=== PATIENT | male | born 1940 | race Caucasian/White ===

== ENCOUNTER 2017-03-20 08:00 | Inpatient (IN) | payer MEDICAID, MEDICARE ==
[2017-03-20] MEDS ORDERED: Sodium Chloride 0.9% 500 ML IV ONE (08:19)
[2017-03-20] MEDS ORDERED: Pantoprazole 40 MG Vial IVPUSH SCH (09:00)
--- NOTE | 2017-03-20 10:23 | EDM.PDOC ---
ED HPI GENERAL MEDICAL PROBLEM - General Chief Complaint: General Stated Complaint: POSSILE STROKE Time Seen by Provider: 03/20/17 08:00 Source of Information: Reports: Patient, Family History Limitations: Reports: Altered Mental Status, Physical Impairment - History of Present Illness INITIAL COMMENTS - FREE TEXT/NARRATIVE: 76 y.o.w.m with H/O IDDM, [facility], came to the ed with his son due an episode of diaphoresis. [facility] staff call, stating pt is physically and mentally declining. Pt is a poor historian. Onset: Unknown/Unsure Onset Date: 03/19/17 Onset Time: 16:00 Duration: Day(s):, Intermittent Location: Reports: Chest, Generalized Severity: Mild Improves with: Reports: None Worsens with: Reports: None Denies Pain Score (Numeric/FACES): 0 - Related Data Allergies Allergy/AdvReac Type Severity Reaction Status Date / Time No Known Allergies Allergy Verified 03/20/17 14:55 Home Meds: Home Meds Ascorbic Acid [Vitamin C] 500 mg PO DAILY 03/20/17 [History] Aspirin 81 mg PO DAILY 03/20/17 [History] Cholecalciferol (Vitamin D3) [Vitamin D3] 1,000 units PO DAILY 03/20/17 [History ] Divalproex Sodium [Depakote ER] 2,000 mg PO BEDTIME 03/20/17 [History] Docusate Sodium [Colace] 100 mg PO BID 03/20/17 [History] Insulin Glargine,Hum.Rec.Anlog [[place] Solostar] 27 units SUBCUT DAILY 03/20/17 [History] Polyethylene Glycol 3350 [Miralax] 17 gram PO BID 03/20/17 [History] Sennosides/Docusate Sodium [Senna Laxative Tablet] 1 tab PO DAILY PRN 03/20/17 [ History] SitaGLIPtin [Januvia] 50 mg PO DAILY 03/20/17 [History] Tamsulosin [Flomax] 0.4 mg PO BEDTIME 03/20/17 [History] Vitamin E 400 units PO DAILY 03/20/17 [History] amLODIPine Besylate [Norvasc] 2.5 mg PO DAILY 03/20/17 [History] risperiDONE [Risperdal] 1 mg PO BEDTIME 03/20/17 [History] Social & Family History - Tobacco Use Smoking Status *Q: Never Smoker Second Hand Smoke Exposure: No - Caffeine Use Caffeine Use: Reports: None - Recreational Drug Use Recreational Drug Use: No ED ROS GENERAL - Review of Systems Review Of Systems: Unable To Obtain ED EXAM, GENERAL - Physical Exam Exam: See Below Exam Limited By: Altered Mental Status General Appearance: Alert, Mild Distress, Obese Eye Exam: Bilateral Eye: Normal Inspection Ears: Normal External Exam Ear Exam: Bilateral Ear: Auricle Normal Nose: Normal Inspection Throat/Mouth: Inflammation (Gingivitis, s/p teeth extractions, poor dentition) Head: Atraumatic, Normocephalic Neck: Normal Inspection, Supple, Non-Tender Respiratory/Chest: No Respiratory Distress, Lungs Clear (poor insp effort) Cardiovascular: Normal Peripheral Pulses, Regular Rate, Rhythm Peripheral Pulses: 1+: Femoral (L), Femoral (R) GI/Abdominal: Normal Bowel Sounds, Soft (Male) Exam: Deferred Rectal (Males) Exam: Deferred Back Exam: Normal Inspection Extremities: Normal Inspection Neurological: Alert, Oriented, Slow to Respond, Abnormal Gait Psychiatric: Normal Affect Skin Exam: Warm, Dry, Intact, Normal Color, No Rash Lymphatic: No Adenopathy EKG INTERPRETATION EKG Date: 03/20/17 Time: 11:40 Rate (Beats/Min): 71 [place]: RAD-Right [place] Deviation P-Wave: Present QRS: Normal ST-T: Normal QT: Normal Comparison: NA - No Prior EKG Course - Vital Signs Text/Narrative:: 76 y.o.w.m with H/O IDDM, currenly at [facility], came to the ed with his son due an episode of diaphoresis. [facility] staff called, stating pt is physically and mentally declining. May need higher level of care. Pt is a poor historian. PE: weak appearing, slow response to questions, poor dentition s/p teeth extractions. can hold upper and lower extremities up for 5 sec. no gaze deviation Labs: Cr. 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 Physical decline, poss ubgrade in care. DNR/DNI Tx: NS, [place] Plan: Admit to M/S Last Recorded V/S: Last Vital Signs Temp 36.7 C 03/20/17 16:00 Pulse 86 03/20/17 16:00 Resp 20 03/20/17 16:00 BP 145/74 H 03/20/17 16:00 Pulse Ox 95 03/20/17 16:00 - Orders/Labs/Meds Orders: Active Orders 24 hr Category Date Time Status Patient Status [ADT] Routine ADT 03/20/17 10:27 Active Oxygen Therapy [RC] PRN Care 03/20/17 10:27 Active VTE/DVT Education [RC] Per Unit Routine Care 03/20/17 10:27 Active Vital Signs [RC] 04,08,12,16,20,00 Care 03/20/17 10:23 Active Acetaminophen/HYDROcodone [[place] 325-5 MG] Med 03/20/17 10:26 Active 1 tab PO Q4H PRN Lactated Ringers [Ringers, Lactated] 1,000 ml Med 03/20/17 10:30 Active IV ASDIRECTED Resuscitation Status Routine Resus Stat 03/20/17 10:26 Ordered EKG 12 Lead [EK] Routine Ther 03/20/17 11:23 Ordered Medication Orders Hydrocodone Bitart/Acetaminophen ([place] 325-5 Mg) 1 tab PO Q4H PRN PRN Reason: Pain (moderate 4-6) Amlodipine Besylate (Norvasc) 2.5 mg PO DAILY [facility] Aspirin (Aspirin) 81 mg PO DAILY [facility] Divalproex Sodium (Depakote Er) 2,000 mg PO BEDTIME [facility] Docusate Sodium (Colace) 100 mg PO BID [facility] Enoxaparin Sodium (Lovenox) 30 mg SUBCUT Q24H [facility] Last Admin: 03/20/17 16:20 Dose: 30 mg Lactated Ringer's (Ringers, Lactated) 1,000 mls @ 125 mls/hr IV ASDIRECTED [facility] Last Admin: 03/20/17 12:16 Dose: 125 mls/hr Levofloxacin/Dextrose 750 mg/ (Premix) 150 mls @ 100 mls/hr IV Q48H [facility] Insulin Aspart (Novolog) 0 unit SUBCUT TIDMEALS [facility] PRN Reason: Protocol Last Admin: 03/20/17 17:38 Dose: Insulin Detemir (Levemir) 20 unit SUBCUT DAILY [facility] Labetalol HCl (Normodyne) 10 mg IVPUSH Q6H PRN; Protocol PRN Reason: Hypertension Pantoprazole Sodium (Protonix Iv) 40 mg IVPUSH Q24H [facility] Last Admin: 03/20/17 16:19 Dose: 40 mg Risperidone (Risperidal) 1 mg PO BEDTIME [facility] Senna/Docusate Sodium (Senna Plus) 1 tab PO DAILY PRN PRN Reason: Constipation Tamsulosin HCl (Flomax) 0.4 mg PO BEDTIME [facility] Labs: Laboratory Tests 03/20/17 03/20/17 03/20/17 Range/Units 08:20 08:20 08:20 WBC 7.6 (4.5-12.0) X10-3/uL RBC 4.21 L (4.30-5.75) x10(6)uL Hgb 12.8 (11.5-15.5) g/dL Hct 38.6 (30.0-51.3) % MCV 91.7 (80-96) fL MCH 30.4 (27.7-33.6) pg MCHC 33.2 (32.2-35.4) g/dL RDW 12.9 (11.5-15.5) % Plt Count 119 L (125-369) X10(3)uL MPV 6.5 L (7.4-10.4) fL Neut % (Auto) 80.6 (46-82) % Lymph % (Auto) 9.8 L (13-37) % [place] % (Auto) 9.1 (4-12) % Eos % (Auto) 0 L (1.0-5.0) % Baso % (Auto) 0 (0-2) % Neut # (Auto) 6.2 (1.6-8.3) # Lymph # (Auto) 0.7 (0.6-5.0) # [place] # (Auto) 0.7 (0.0-1.3) # Eos # (Auto) 0.0 (0.0-0.8) # Baso # (Auto) 0.0 (0.0-0.2) # PT 11.1 (8.7-11.1) INR 1.10 (0.89-1.13) Sodium 139 (135-145) mmol/L Potassium 4.6 (3.5-5.3) mmol/L Chloride 109 (100-110) mmol/L Carbon Dioxide 21 L (23-29) mmol/L BUN 28 H (8-23) mg/dL Creatinine 2.1 H* (0.6-1.3) mg/dL Est Cr Clr Drug Dosing TNP Estimated GFR (MDRD) 31 L (>60) BUN/Creatinine Ratio 13.3 (9-20) Glucose 151 H (80-116) mg/dL Hemoglobin A1c (4.0-6.0) % Lactic Acid (0.5-2.2) mmol/L Calcium 9.4 (8.6-10.2) mg/dL Total Bilirubin 0.7 (0.1-1.3) mg/dL Direct Bilirubin < 0.1 L (0.1-0.2) mg/dL AST 27 (5-27) IU/L ALT 14 (14-26) IU/L Alkaline Phosphatase 78 (56-112) IU/L Creatine Kinase 324 H* (60-160) IU/L Troponin I (0.02-0.06) NG/ML B-Natriuretic Peptide (0-100) pg/mL Total Protein 7.1 (6.0-8.0) g/dL Albumin 3.1 L (3.2-4.6) g/dL 03/20/17 03/20/17 03/20/17 Range/Units 08:20 08:20 08:20 WBC (4.5-12.0) X10-3/uL RBC (4.30-5.75) x10(6)uL Hgb (11.5-15.5) g/dL Hct (30.0-51.3) % MCV (80-96) fL MCH (27.7-33.6) pg MCHC (32.2-35.4) g/dL RDW (11.5-15.5) % Plt Count (125-369) X10(3)uL MPV (7.4-10.4) fL Neut % (Auto) (46-82) % Lymph % (Auto) (13-37) % [place] % (Auto) (4-12) % Eos % (Auto) (1.0-5.0) % Baso % (Auto) (0-2) % Neut # (Auto) (1.6-8.3) # Lymph # (Auto) (0.6-5.0) # [place] # (Auto) (0.0-1.3) # Eos # (Auto) (0.0-0.8) # Baso # (Auto) (0.0-0.2) # PT (8.7-11.1) INR (0.89-1.13) Sodium (135-145) mmol/L Potassium (3.5-5.3) mmol/L Chloride (100-110) mmol/L Carbon Dioxide (23-29) mmol/L BUN (8-23) mg/dL Creatinine (0.6-1.3) mg/dL Est Cr Clr Drug Dosing Estimated GFR (MDRD) (>60) BUN/Creatinine Ratio (9-20) Glucose (80-116) mg/dL Hemoglobin A1c (4.0-6.0) % Lactic Acid 2.8 H (0.5-2.2) mmol/L Calcium (8.6-10.2) mg/dL Total Bilirubin (0.1-1.3) mg/dL Direct Bilirubin (0.1-0.2) mg/dL AST (5-27) IU/L ALT (14-26) IU/L Alkaline Phosphatase (56-112) IU/L Creatine Kinase (60-160) IU/L Troponin I < 0.01 L (0.02-0.06) NG/ML B-Natriuretic Peptide 64 (0-100) pg/mL Total Protein (6.0-8.0) g/dL Albumin (3.2-4.6) g/dL 03/20/17 Range/Units 08:20 WBC (4.5-12.0) X10-3/uL RBC (4.30-5.75) x10(6)uL Hgb (11.5-15.5) g/dL Hct (30.0-51.3) % MCV (80-96) fL MCH (27.7-33.6) pg MCHC (32.2-35.4) g/dL RDW (11.5-15.5) % Plt Count (125-369) X10(3)uL MPV (7.4-10.4) fL Neut % (Auto) (46-82) % Lymph % (Auto) (13-37) % [place] % (Auto) (4-12) % Eos % (Auto) (1.0-5.0) % Baso % (Auto) (0-2) % Neut # (Auto) (1.6-8.3) # Lymph # (Auto) (0.6-5.0) # [place] # (Auto) (0.0-1.3) # Eos # (Auto) (0.0-0.8) # Baso # (Auto) (0.0-0.2) # PT (8.7-11.1) INR (0.89-1.13) Sodium (135-145) mmol/L Potassium (3.5-5.3) mmol/L Chloride (100-110) mmol/L Carbon Dioxide (23-29) mmol/L BUN (8-23) mg/dL Creatinine (0.6-1.3) mg/dL Est Cr Clr Drug Dosing Estimated GFR (MDRD) (>60) BUN/Creatinine Ratio (9-20) Glucose (80-116) mg/dL Hemoglobin A1c 5.6 (4.0-6.0) % Lactic Acid (0.5-2.2) mmol/L Calcium (8.6-10.2) mg/dL Total Bilirubin (0.1-1.3) mg/dL Direct Bilirubin (0.1-0.2) mg/dL AST (5-27) IU/L ALT (14-26) IU/L Alkaline Phosphatase (56-112) IU/L Creatine Kinase (60-160) IU/L Troponin I (0.02-0.06) NG/ML B-Natriuretic Peptide (0-100) pg/mL Total Protein (6.0-8.0) g/dL Albumin (3.2-4.6) g/dL Meds: Medications Generic Name Dose Route Start Last Admin Trade Name Freq PRN Reason Stop Dose Admin Hydrocodone Bitart/Acetaminophen 1 tab 03/20/17 10:26 [place] 325-5 Mg PO Q4H PRN Pain (moderate 4-6) Amlodipine Besylate 2.5 mg 03/21/17 09:00 Norvasc PO DAILY [facility] Aspirin 81 mg 03/21/17 09:00 Aspirin PO DAILY [facility] Divalproex Sodium 2,000 mg 03/20/17 21:00 Depakote Er PO BEDTIME [facility] Docusate Sodium 100 mg 03/20/17 21:00 Colace PO BID [facility] Enoxaparin Sodium 30 mg 03/20/17 16:00 03/20/17 16:20 Lovenox SUBCUT 30 mg Q24H [facility] Administration Lactated Ringer's 1,000 mls @ 125 mls/hr 03/20/17 10:30 03/20/17 12:16 Ringers, Lactated IV 125 mls/hr ASDIRECTED [facility] Administration Levofloxacin/Dextrose 750 mg/ 150 mls @ 100 mls/hr 03/22/17 12:00 Premix IV Q48H [facility] Insulin Aspart 0 unit 03/20/17 18:00 03/20/17 17:38 Novolog SUBCUT Not Given TIDMEALS [facility] Protocol Insulin Detemir 20 unit 03/21/17 09:00 Levemir SUBCUT DAILY [facility] Labetalol HCl 10 mg 03/20/17 14:33 Normodyne IVPUSH Q6H PRN Hypertension Protocol Pantoprazole Sodium 40 mg 03/20/17 16:00 03/20/17 16:19 Protonix Iv IVPUSH 40 mg Q24H [facility] Administration Risperidone 1 mg 03/20/17 21:00 Risperidal PO BEDTIME [facility] Senna/Docusate Sodium 1 tab 03/20/17 14:30 Senna Plus PO DAILY PRN Constipation Tamsulosin HCl 0.4 mg 03/20/17 21:00 Flomax PO BEDTIME [facility] Discontinued Medications Generic Name Dose Route Start Last Admin Trade Name Freq PRN Reason Stop Dose Admin Sodium Chloride 500 mls @ 999 mls/hr 03/20/17 08:19 03/20/17 10:56 Normal Saline IV 03/20/17 08:49 999 mls/hr .BOLUS ONE Administration Levofloxacin/Dextrose 500 mg/ 100 mls @ 100 mls/hr 03/20/17 11:48 03/20/17 14 :11 Premix IV 03/20/17 12:47 100 mls/hr ONETIME ONE Administration Levofloxacin/Dextrose 250 mg/ 50 mls @ 50 mls/hr 03/20/17 15:14 03/20/17 15: 29 Premix IV 03/20/17 16:13 50 mls/hr ONETIME ONE Administration Insulin Detemir 20 unit 03/21/17 21:00 Levemir SUBCUT DAILY [facility] Ondansetron HCl 4 mg 03/20/17 10:26 Zofran IV Q4H PRN Nausea/Vomiting Pantoprazole Sodium 40 mg 03/20/17 09:00 03/20/17 16:37 Protonix Iv IVPUSH Not Given Q24H [facility] Departure - Departure Time of Disposition: 10:21 Disposition: Admitted As Inpatient 67 Condition: Fair Clinical Impression: Frequent falls, Mental health assessment declined, DNR (do not resuscitate) - Discharge Information - My Orders Last 24 Hours: My Active Orders 03/20/17 10:23 Vital Signs [RC] 04,08,12,16,20,00 03/20/17 10:26 Acetaminophen/HYDROcodone [[place] 325-5 MG] 1 tab PO Q4H PRN Resuscitation Status Routine 03/20/17 10:27 Patient Status [ADT] Routine Oxygen Therapy [RC] PRN VTE/DVT Education [RC] Per Unit Routine 03/20/17 10:30 Lactated Ringers [Ringers, Lactated] 1,000 ml IV ASDIRECTED 03/20/17 11:23 EKG 12 Lead [EK] Routine - Assessment/Plan Last 24 Hours: My Active Orders 03/20/17 10:23 Vital Signs [RC] 04,08,12,16,20,00 03/20/17 10:26 Acetaminophen/HYDROcodone [[place] 325-5 MG] 1 tab PO Q4H PRN Resuscitation Status Routine 03/20/17 10:27 Patient Status [ADT] Routine Oxygen Therapy [RC] PRN VTE/DVT Education [RC] Per Unit Routine 03/20/17 10:30 Lactated Ringers [Ringers, Lactated] 1,000 ml IV ASDIRECTED 03/20/17 11:23 EKG 12 Lead [EK] Routine
[2017-03-20] MEDS ORDERED: Ondansetron 4 MG/2 ML SDV IV PRN (10:26)
--- NOTE | 2017-03-20 11:04 | CT ---
INDICATION: Falls frequently. CT HEAD WITHOUT CONTRAST: Serial contiguous 2.5 and 5-mm sections were obtained through the brain without contrast and revealed thickening of the linings of the maxillary antra, right greater than left, and the possibility of a nasal polyp in the right nasal cavity posteriorly at the medial wall of the right maxillary antrum. Direct visualization is recommended. Paranasal sinuses were otherwise unremarkable. Mastoid air cells appear to be well aerated. No definite cranial abnormality is identified. No shift of midline structures was noted. The ventricles are slightly prominent , compatible with age and a mild degree of central atrophy. There appears to be some cerebellar atrophy and frontal cortical atrophy. A tiny low-density area in the left basal ganglia is compatible with lacunar infarct, most likely old. There appear to be some minimal low-density changes in the white matter, suggesting microvascular disease or other similar leukoencephalopathy. Calcifications are noted in the internal carotid and vertebral arteries. No bleeding site or hematoma was identified. No acute intracranial abnormality was seen. IMPRESSION: 1. No acute intracranial abnormality. 2. Cerebrovascular disease changes with calcifications in the arteries. 3. Suggestion of minimal microvascular disease type changes in the white matter , although other cause of leukoencephalopathy cannot be excluded. 4. Cerebellar and frontal cortical atrophy predominantly with some minimal central atrophy. 5. Small lacunar infarct, probably old, left basal ganglia. 6. Possible nasal polyp right posterior nasal cavity. Direct visualization recommended. 7. Thickening of the linings of maxillary antra. Total Exam DLP = 949.36 mGy-cm. MTDD
--- NOTE | 2017-03-20 11:12 | CR ---
INDICATION: Sweaty, diaphoretic. CHEST: PA and lateral views of the chest were obtained. No comparison study is available. The aorta is tortuous with calcification in the arch. The heart is normal in size and shape. Moderate degenerative changes are noted in the lower middle thoracic spine. Expansion and sclerosis is noted at the distal - anterior aspect of the right 3rd rib. Etiology is indeterminate. Findings could be on the basis of a process such as Paget's disease. Nuclear medicine study may be helpful for further evaluation, depending upon clinical correlation. Somewhat heavy markings posteriorly are noted, likely due to relatively poor inspiration, making it difficult to entirely exclude minimal patchy pneumonia, especially in the medial posterior lobes. An active infiltrate or effusion was not identified. IMPRESSION: 1. No acute process. 2. ASD aorta. 3. 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 Other etiology is difficult to entirely exclude, however. Follow-up may be warranted. Numerous differential possibilities are present. These include metastatic disease, myelofibrosis, renal osteodystrophy, etc. 4. Somewhat heavy markings posteriorly are noted, likely due to relatively poor inspiration, making it difficult to entirely exclude minimal patchy pneumonia, especially in the medial posterior lobes. MTDD
[2017-03-20] MEDS ORDERED: Levofloxacin/Dextrose 5%-Water 500 MG in Premix Bag 1 BAG IV ONE (11:48)
[2017-03-20] MEDS: Lactated Ringers 1,000 ML IV SCH ×2 (12:16→22:29)
[2017-03-20] MEDS ORDERED: Labetalol 100 MG/20 ML MDV IVPUSH PRN (14:33)
--- NOTE | 2017-03-20 15:08 | PCM.HP ---
H&P History of Present Illness - General Date of Service: 03/20/17 Source of Information: Patient, Family History Limitations: Reports: Altered Mental Status - History of Present Illness Initial Comments - Free Text/Narative: pleasant 76 y male brought in as he has been having increased weakness and increased frequency of falls at his assisted living facility and they felt he was not appropriate for continued cares there at this time. hx of falls in the past. chronic hx of dementia. Denies Pain Score (Numeric/FACES): 0 Right Knee Pain Score (Numeric/FACES): 6 Mouth Pain Score (Numeric/FACES): 6 asleep Pain Score (Numeric/FACES): 0 - Related Data Allergies/Adverse Reactions: Allergies Allergy/AdvReac Type Severity Reaction Status Date / Time No Known Allergies Allergy Verified 03/25/17 14:02 Home Medications: Home Meds Ascorbic Acid [Vitamin C] 500 mg PO DAILY 03/20/17 [History] Aspirin 81 mg PO DAILY 03/20/17 [History] Cholecalciferol (Vitamin D3) [Vitamin D3] 1,000 units PO DAILY 03/20/17 [History ] Divalproex Sodium [Depakote ER] 2,000 mg PO BEDTIME 03/20/17 [History] Docusate Sodium [Colace] 100 mg PO BID 03/20/17 [History] Insulin Glargine,Hum.Rec.Anlog [Toujeo Solostar] 27 units SUBCUT DAILY 03/20/17 [History] Polyethylene Glycol 3350 [Miralax] 17 gram PO BID 03/20/17 [History] Sennosides/Docusate Sodium [Senna Laxative Tablet] 1 tab PO DAILY PRN 03/20/17 [ History] SitaGLIPtin [Januvia] 50 mg PO DAILY 03/20/17 [History] Tamsulosin [Flomax] 0.4 mg PO BEDTIME 03/20/17 [History] Vitamin E 400 units PO DAILY 03/20/17 [History] amLODIPine Besylate [Norvasc] 2.5 mg PO DAILY 03/20/17 [History] risperiDONE [Risperdal] 1 mg PO BEDTIME 03/20/17 [History] Past Medical History HEENT History: Reports: Cataract Genitourinary History: Reports: Other (See Below) Other Genitourinary History: Patient stated that he had kidney issues r/t 14 yrs. of [place] use. Neurological History: Reports: CVA Psychiatric History: Reports: Bipolar Endocrine/Metabolic History: Reports: Diabetes, Type II - Infectious Disease History Infectious Disease History: Reports: Chicken Pox, Measles - Past Surgical History HEENT Surgical History: Reports: Eye Surgery, Tonsillectomy GI Surgical History: Reports: Appendectomy, Colonoscopy Male Surgical History: Reports: None Endocrine Surgical History: Reports: None Neurological Surgical History: Reports: None Social & Family History - Family History Family Medical History: Noncontributory - Tobacco Use Smoking Status *Q: Never Smoker Second Hand Smoke Exposure: No - Caffeine Use Caffeine Use: Reports: None - Recreational Drug Use Recreational Drug Use: No H&P Review of Systems - Review of Systems: Review Of Systems: ROS reveals no pertinent complaints other than HPI. Exam - Exam Exam: See Below - Vital Signs Vital Signs: Last Vital Signs Temp 98.2 F 03/20/17 11:31 Pulse 85 03/20/17 11:31 Resp 18 03/20/17 11:31 BP 161/71 H 03/20/17 11:31 Pulse Ox 97 03/20/17 11:31 Weight: 133.838 kg - Exam Physical Exam Comments:: General Appearance: Alert, no Distress, Obese Eye Exam: PERRL Nose: Normal Inspection Throat/Mouth: Inflammation (Gingivitis, s/p teeth extractions, poor dentition) Head: Atraumatic, Normocephalic Neck: Normal Inspection, Supple, Non-Tender Respiratory/Chest: No Respiratory Distress, Lungs Clear (poor insp effort) Cardiovascular: Normal Peripheral Pulses, Regular Rate, Rhythm GI/Abdominal: Normal Bowel Sounds, Soft Back Exam: Normal Inspection Extremities: Normal Inspection Neurological: Alert, Oriented, Slow to Respond, equal strength and ROM. Psychiatric: Normal Affect Skin Exam: Warm, Dry, Intact, Normal Color, No Rash Lymphatic: No Adenopathy - Patient Data Lab Results Last 24 hrs: Laboratory Results - last 24 hr 03/20/17 Range/Units 13:50 Urine Color Yellow (YELLOW) Urine Appearance Clear (CLEAR) Urine pH 5.0 (5.0-6.5) Ur Specific [place] 1.010 (1.010-1.025) Urine Protein Negative (NEGATIVE) mg/dL Urine Glucose (UA) Normal (NEGATIVE) mg/dL Urine Ketones 15 H (NEGATIVE) mg/dL Urine Occult Blood Negative (NEGATIVE) Urine Nitrite Negative (NEGATIVE) Urine Bilirubin Negative (NEGATIVE) Urine Urobilinogen Normal (NEGATIVE) mg/dL Ur Leukocyte Esterase Negative (NEGATIVE) Urine RBC 0-5 (0) Urine WBC 0-5 (0) Ur Squamous Epith Cells Occasional (NS,R,O) Urine Bacteria Rare H (NS) Result Diagrams: 03/22/17 09:40 03/22/17 09:40 Imaging Impressions Last 24 hrs: as noted general CVD without mass or hemorrage in brain. EKG INTERPRETATION Rhythm: NSR P-Wave: Present QRS: Normal ST-T: Normal QT: Normal Comparison: No Change *Q Meaningful Use (ADM) - VTE *Q VTE Criteria *Q: VTE Mechanical Contraindications *Q: At Risk for Falls - Stroke *Q Stroke Criteria *Q: - AMI *Q AMI Criteria *Q: - Problem List (1) Suspected cerebrovascular accident (CVA) SNOMED Code(s): 53513327 ICD Code: I63.9 - CEREBRAL INFARCTION, UNSPECIFIED Status: Acute Priority : High (2) Frequent falls SNOMED Code(s): 052466427 ICD Code: R29.6 - REPEATED FALLS Status: Acute (3) Mental health assessment declined SNOMED Code(s): 072577151 ICD Code: [id number] - Status: Acute (4) Acute renal insufficiency SNOMED Code(s): 914658038 ICD Code: N28.9 - DISORDER OF KIDNEY AND URETER, UNSPECIFIED Status: Acute (5) Gingivitis, acute SNOMED Code(s): 57276461 ICD Code: K05.00 - ACUTE GINGIVITIS, PLAQUE INDUCED Status: Acute (6) Other dental procedure status SNOMED Code(s): 395369129 ICD Code: Z98.818 - OTHER DENTAL PROCEDURE STATUS Status: Acute (7) Complaint of debility and malaise SNOMED Code(s): 374497087 ICD Code: R53.81 - OTHER MALAISE Status: Acute (8) Diabetes mellitus, insulin dependent (IDDM), controlled SNOMED Code(s): 01467490 ICD Code: E11.9 - TYPE 2 DIABETES MELLITUS WITHOUT COMPLICATIONS; Z79.4 - CONTINUOUS CRUSHER OPERATOR (CURRENT) USE OF INSULIN Status: Acute (9) Palliative care status SNOMED Code(s): 740217668 ICD Code: Z51.5 - ENCOUNTER FOR PALLIATIVE CARE Status: Acute (10) CVD (cerebrovascular disease) SNOMED Code(s): 28406145 ICD Code: I67.9 - CEREBROVASCULAR DISEASE, UNSPECIFIED Status: Acute (11) Cerebral atrophy SNOMED Code(s): 508694606 ICD Code: G31.9 - DEGENERATIVE DISEASE OF NERVOUS SYSTEM, UNSPECIFIED Status: Acute (12) DNR (do not resuscitate) Status: Acute (13) DNI (do not intubate) SNOMED Code(s): 092485109 ICD Code: Z78.9 - OTHER SPECIFIED HEALTH STATUS Status: Acute (14) HTN (hypertension) SNOMED Code(s): 53339723 ICD Code: I10 - ESSENTIAL (PRIMARY) HYPERTENSION Status: Acute (15) Hx of seizure disorder SNOMED Code(s): 699386860 ICD Code: Z86.69 - PERSONAL HISTORY OF DIS OF THE NERVOUS SYS AND SENSE ORGANS Status: Acute (16) History of CVA (cerebrovascular accident) SNOMED Code(s): 315905146 ICD Code: Z86.73 - PRSNL HX OF TIA (TIA), AND CEREB INFRC W/O RESID DEFICITS Status: Chronic (17) Lives in assisted living facility SNOMED Code(s): 704380108 ICD Code: Z59.3 - PROBLEMS RELATED TO LIVING IN RESIDENTIAL INSTITUTION Status: Chronic (18) Parkinsons SNOMED Code(s): 05628674 ICD Code: G20 - PARKINSON'S DISEASE Status: Acute (19) Physical deconditioning SNOMED Code(s): 51556180490154 ICD Code: R53.81 - OTHER MALAISE Status: Acute Problem List Initiated/Reviewed/Updated: Yes Orders Last 24hrs: Active Orders 24 hr Category Date Time Status Assess Neurological Status [RC] Q4H Care 03/20/17 14:46 Ordered Blood Glucose Check, Bedside [RC] QIDACANDBED Care 03/20/17 14:33 Ordered Communication Order [RC] ASDIRECTED Care 03/20/17 14:34 Ordered Head of Bed Elevation [RC] ASDIRECTED Care 03/20/17 14:34 Ordered Height and Weight [RC] DAILY Care 03/20/17 14:33 Ordered Intake and Output [RC] Q4H Care 03/20/17 14:35 Ordered NIH Stroke Scale [RC] ASDIRECTED Care 03/20/17 14:47 Ordered Notify Provider Status Change [RC] ASDIRECTED Care 03/20/17 14:47 Ordered Notify Provider Vital Signs [RC] ASDIRECTED Care 03/20/17 14:36 Ordered Notify Provider [RC] PRN Care 03/20/17 14:54 Ordered Nursing Bedside Swallow Screen [RC] ASDIRECTED Care 03/20/17 14:47 Ordered Up With Assistance [RC] ASDIRECTED Care 03/20/17 14:33 Ordered Up to Chair [RC] ASDIRECTED Care 03/20/17 14:33 Ordered Consult to Watermelon Harvesting Supervisor [CONS] Routine Cons 03/20/17 14:33 Ordered OT Evaluation and Treatment [CONS] Routine Cons 03/20/17 14:33 Ordered PT Evaluation and Treatment [CONS] Routine Cons 03/20/17 14:33 Ordered Nothing per Oral Now Diet [DIET] Diet 03/20/17 Breakfast Ordered CBC WITH AUTO DIFF [HEME] AM Lab 03/21/17 05:11 Ordered COMPREHENSIVE METABOLIC PN,CMP [CHEM] AM Lab 03/21/17 05:11 Ordered CREATINE KINASE,CK [CHEM] AM Lab 03/21/17 05:11 Ordered CULTURE BLOOD [BC] Urgent Lab 03/20/17 12:10 Received CULTURE BLOOD [BC] Urgent Lab 03/20/17 12:15 Received TROPONIN I [CHEM] Routine Lab 03/20/17 14:33 Ordered Aspirin Med 03/21/17 09:00 Ordered 81 mg PO DAILY Divalproex Sodium [Depakote ER] Med 03/20/17 21:00 Ordered 2,000 mg PO BEDTIME Docusate Sodium [Colace] Med 03/20/17 21:00 Ordered 100 mg PO BID Docusate Sodium/Sennosides [Senna Plus] Med 03/20/17 14:30 Ordered 1 tab PO DAILY PRN Enoxaparin [Lovenox] Med 03/20/17 14:45 Ordered 30 mg SUBCUT DAILY Insulin Aspart [NovoLOG] Med 03/20/17 18:00 Ordered See Protocol SUBCUT TIDMEALS Insulin Detemir [Levemir] Med 03/21/17 21:00 Ordered 20 unit SUBCUT DAILY Labetalol [Normodyne] Med 03/20/17 14:33 Ordered 10 mg IVPUSH Q6H PRN Pantoprazole [ProTONIX IV] Med 03/20/17 09:00 Ordered 40 mg IVPUSH Q24H Tamsulosin [Flomax] Med 03/20/17 21:00 Ordered 0.4 mg PO BEDTIME amLODIPine [Norvasc] Med 03/21/17 09:00 Ordered 2.5 mg PO DAILY risperiDONE [RisperiDAL] Med 03/20/17 21:00 Ordered 1 mg PO BEDTIME Blood Culture x2 Reflex Set [OM.PC] Urgent Oth 03/20/17 11:47 Ordered Seizure Precautions [OM.PC] Per Unit Routine Oth 03/20/17 14:47 Ordered VTE Mechanical Contraindications [AST] Per Unit Routine Oth 03/20/17 14:33 Ordered Medication Orders Hydrocodone Bitart/Acetaminophen ([place] 325-5 Mg) 1 tab PO Q4H PRN PRN Reason: Pain (moderate 4-6) Lactated Ringer's (Ringers, Lactated) 1,000 mls @ 125 mls/hr IV ASDIRECTED [facility] Last Admin: 03/20/17 12:16 Dose: 125 mls/hr Assessment/Plan Comment:: stop antibiotics. bc pending. hydrate. bedside swallow normal per me. will let him eat. dvt/gi proph. pt/ot. geriatric social work professor for d/c planning. stoke and seizure percautions. control bp and fluid status. at risk for falls. see above orders. will get a ck level. ekg looks good. monitor on tele for possible contributory rhythm changes. discussed with son at bedside and plan of care as related to above, including indication, projected course and code status reviewed. he is DNR/DNI. they are comfortable with plan. anticipate stay acute 1 -2 days then likely over to swing bed for continued PT/OT.
[2017-03-20] MEDS ORDERED: Levofloxacin/Dextrose 5%-Water 250 MG in Premix Bag 1 BAG IV ONE (15:14)
[2017-03-20] MEDS: Pantoprazole 40 MG Vial IVPUSH SCH (16:19)
[2017-03-20] MEDS: Enoxaparin 30 MG/0.3 ML Syringe SUBCUT SCH (16:20)
[2017-03-20] MEDS: Insulin Aspart 100 Units/ML 3 ML Pen SUBCUT SCH (17:38)
[2017-03-20] MEDS: Docusate Sodium 100 MG Cap PO SCH (20:46)
[2017-03-20] MEDS: Divalproex Sodium 500 MG Tab.ER PO SCH (20:47)
[2017-03-20] MEDS: Tamsulosin 0.4 MG Cap.ER PO SCH (20:48)
[2017-03-20] MEDS: risperiDONE 1 MG Tab PO SCH (20:48)
[2017-03-21] MEDS: Lactated Ringers 1,000 ML IV SCH ×3 (06:13→21:43)
[2017-03-21] MEDS: Insulin Aspart 100 Units/ML 3 ML Pen SUBCUT SCH ×3 (08:03→17:50)
[2017-03-21] MEDS: Docusate Sodium 100 MG Cap PO SCH ×2 (08:07→20:20)
[2017-03-21] MEDS: Aspirin 81 MG Tab.Chew PO SCH (08:07)
[2017-03-21] MEDS: amLODIPine 2.5 MG Tab PO SCH (08:07)
[2017-03-21] MEDS: Insulin Detemir 100 Units/ML 3 ML Pen SUBCUT SCH (08:07)
[2017-03-21] MEDS ORDERED: D5 1/2 NS w/ 10 mEq/L KCl 1,000 ML IV SCH (16:15)
[2017-03-21] MEDS: Pantoprazole 40 MG Vial IVPUSH SCH (17:06)
[2017-03-21] MEDS: Enoxaparin 30 MG/0.3 ML Syringe SUBCUT SCH (17:06)
[2017-03-21] MEDS: Divalproex Sodium 500 MG Tab.ER PO SCH (20:19)
[2017-03-21] MEDS: Tamsulosin 0.4 MG Cap.ER PO SCH (20:20)
[2017-03-21] MEDS: risperiDONE 1 MG Tab PO SCH (20:20)
[2017-03-21] MEDS ORDERED: Insulin Detemir 100 Units/ML 3 ML Pen SUBCUT SCH (21:00)
[2017-03-22] MEDS: Lactated Ringers 1,000 ML IV SCH (04:30)
[2017-03-22] MEDS: Insulin Aspart 100 Units/ML 3 ML Pen SUBCUT SCH ×3 (08:16→17:07)
[2017-03-22] MEDS: Docusate Sodium 100 MG Cap PO SCH ×2 (08:19→21:38)
[2017-03-22] MEDS: Aspirin 81 MG Tab.Chew PO SCH (08:19)
[2017-03-22] MEDS: Insulin Detemir 100 Units/ML 3 ML Pen SUBCUT SCH (08:20)
[2017-03-22] MEDS: amLODIPine 2.5 MG Tab PO SCH (08:20)
--- NOTE | 2017-03-22 10:02 | PN ---
DATE SEEN: 03/22/2017 REASON FOR VISIT: Weakness. HISTORY OF PRESENT ILLNESS: This is a 76-year-old male who was admitted 2 days ago for possible stroke. He was noted to have cerebral atrophy. He is weak and has had multiple falls. This morning, he slept well. He has had some behavioral changes at home in the last 2 weeks and it is believed that he is no longer able to stay alone. REVIEW OF SYSTEMS: No chest pain and no shortness of breath today. No fever. Denies any cough. ALLERGIES: None. PHYSICAL EXAMINATION: VITAL SIGNS: His blood pressure is normal. His temp is 98.1, oxygenation 95%. EARS, NOSE, AND THROAT: Negative. CHEST: Clear. MENTAL STATUS: Alert. Answers question appropriately. NEURO: Gait is shuffling gait and has tremors. LABORATORY DATA: Normal white cell count yesterday. Creatinine was 1.9. Creatine kinase was 911. Chest x-ray was really unremarkable. They could not rule out pneumonia, but I doubt. FINAL IMPRESSION: 1. Generalized weakness. 2. Renal failure from dehydration. 3. Parkinsonism. 4. Mild anemia. 5. Palliative care status. 6. History of cerebrovascular disease. 7. Type 2 diabetes. PLAN: My plan is to continue physical and occupation therapy, reduce fluids, repeat electrolytes, and consult medical illustrator for placement in the next coming days or swing bed status, whichever is deemed possible. /[id number] [id number] ALEX/FELIPA
[2017-03-22] MEDS ORDERED: Levofloxacin/Dextrose 5%-Water 750 MG in Premix Bag 1 BAG IV SCH (12:00)
[2017-03-22] MEDS: Pantoprazole 40 MG Vial IVPUSH SCH (16:16)
[2017-03-22] MEDS: Enoxaparin 30 MG/0.3 ML Syringe SUBCUT SCH (16:16)
[2017-03-22] MEDS: Divalproex Sodium 500 MG Tab.ER PO SCH (21:39)
[2017-03-22] MEDS: Tamsulosin 0.4 MG Cap.ER PO SCH (21:41)
[2017-03-22] MEDS: risperiDONE 1 MG Tab PO SCH (21:41)
[2017-03-23] MEDS: Insulin Aspart 100 Units/ML 3 ML Pen SUBCUT SCH ×3 (08:01→17:25)
[2017-03-23] MEDS: Aspirin 81 MG Tab.Chew PO SCH (08:05)
[2017-03-23] MEDS: Docusate Sodium 100 MG Cap PO SCH ×2 (08:05→20:51)
[2017-03-23] MEDS: amLODIPine 2.5 MG Tab PO SCH (08:06)
[2017-03-23] MEDS: Insulin Detemir 100 Units/ML 3 ML Pen SUBCUT SCH (08:06)
--- NOTE | 2017-03-23 09:15 | PN ---
DATE SEEN: 03/23/2017 CHIEF COMPLAINT: Weakness. HISTORY OF PRESENT ILLNESS: This is a 76-year-old male, admitted recently for weakness, physical deconditioning, and frequent falls. He has a history of parkinsonism, bipolar disorder, and type 2 diabetes. He is doing well, eating, and has been attending physical therapy successfully, waiting for placement. REVIEW OF SYSTEMS: No chest pain. No fever or chills. No cough. No tooth pain today. PAST MEDICAL HISTORY: Please see the problem list. PHYSICAL EXAMINATION: GENERAL: He is well nourished. He is not in any cardiopulmonary distress. VITAL SIGNS: He has a blood pressure of 129/69, pulse of 82, and temperature 98.1. CHEST: Clear. ENT: Negative. Oropharynx revealed edentulous area on the right upper jaw, but no tenderness or swelling. NEUROLOGIC: No focal findings. Tremors. MUSCULOSKELETAL: No edema. LABORATORY DATA: This morning, no new labs, except a glucose of 118. FINAL IMPRESSION: 1. Frequent falls. 2. Parkinsonism. 3. Bipolar disorder. 4. History of cerebrovascular accident. 5. Type 2 diabetes. 6. Acute renal insufficiency, stable. PLAN: Discontinue IV fluids and neuro checks. Continue PT and tight glucose control. Awaiting placement next week. /[id number] ALEX/FELIPA
[2017-03-23] MEDS: Enoxaparin 30 MG/0.3 ML Syringe SUBCUT SCH (16:15)
[2017-03-23] MEDS: Pantoprazole 40 MG Tab.CR PO SCH (16:50)
[2017-03-23] MEDS: Pantoprazole 40 MG Vial IVPUSH SCH (17:27)
[2017-03-23] MEDS: Tamsulosin 0.4 MG Cap.ER PO SCH (20:51)
[2017-03-23] MEDS: Divalproex Sodium 500 MG Tab.ER PO SCH (20:51)
[2017-03-23] MEDS: risperiDONE 1 MG Tab PO SCH (20:51)
[2017-03-24] MEDS: Acetaminophen/HYDROcodone 325-5 MG Tab PO PRN ×2 (04:50→10:24)
[2017-03-24] MEDS: Pantoprazole 40 MG Tab.CR PO SCH (06:02)
--- NOTE | 2017-03-24 09:32 | PN ---
DATE SEEN: 03/24/2017 REASON FOR VISIT: Weakness. HISTORY OF PRESENT ILLNESS: This is a 76-year-old male, who has Parkinsonism features and has had some weakness. He feels better today. Complains of some pain in the right knee that is acute. He would like cream. REVIEW OF SYSTEMS: All other systems were negative. ALLERGIES AND MEDICATIONS: Updated. PHYSICAL EXAMINATION: VITAL SIGNS: Blood pressure 160/82, pulse is 73, temperature 98.3. ENT: Negative. CHEST: Clear. EXTREMITIES: Normal with exception of mild tenderness to the right knee. Gait normal. IMPRESSION: 1. Generalized weakness and deconditioning. 2. Frequent falls. 3. Bipolar disorder. 4. Parkinson disease. 5. History of cerebrovascular accident. 6. Type 2 diabetes. 7. Stable acute renal insufficiency. 8. Right knee pain. PLAN: Voltaren gel to the right knee 4 g q.i.d. Continue current medications. PT and OT to continue working with him as we will wait placement. /[id number] [phone] ALEX/FELIPA
[2017-03-24] MEDS: Insulin Aspart 100 Units/ML 3 ML Pen SUBCUT SCH ×3 (10:22→18:24)
[2017-03-24] MEDS: Aspirin 81 MG Tab.Chew PO SCH (10:23)
[2017-03-24] MEDS: Docusate Sodium 100 MG Cap PO SCH ×2 (10:24→20:33)
[2017-03-24] MEDS: amLODIPine 2.5 MG Tab PO SCH (10:24)
[2017-03-24] MEDS: Insulin Detemir 100 Units/ML 3 ML Pen SUBCUT SCH (10:25)
[2017-03-24] MEDS: Enoxaparin 30 MG/0.3 ML Syringe SUBCUT SCH (16:04)
[2017-03-24] MEDS: risperiDONE 1 MG Tab PO SCH (20:33)
[2017-03-24] MEDS: Tamsulosin 0.4 MG Cap.ER PO SCH (20:33)
[2017-03-24] MEDS: Divalproex Sodium 500 MG Tab.ER PO SCH (20:34)
[2017-03-24] MEDS: Diclofenac Sodium 1% Gel 100 GM Tube TOP PRN (20:47)
[2017-03-25] MEDS: Diclofenac Sodium 1% Gel 100 GM Tube TOP PRN ×2 (02:45→11:12)
[2017-03-25] MEDS: Pantoprazole 40 MG Tab.CR PO SCH (06:18)
[2017-03-25] MEDS: Insulin Aspart 100 Units/ML 3 ML Pen SUBCUT SCH ×2 (07:13→11:28)
[2017-03-25] MEDS: Docusate Sodium 100 MG Cap PO SCH (08:17)
[2017-03-25] MEDS: Aspirin 81 MG Tab.Chew PO SCH (08:17)
[2017-03-25] MEDS: amLODIPine 2.5 MG Tab PO SCH (08:17)
[2017-03-25] MEDS: Insulin Detemir 100 Units/ML 3 ML Pen SUBCUT SCH (08:17)
[2017-03-25 08:23] VITALS: BP 136/74
--- NOTE | 2017-03-25 08:32 | PN ---
DATE SEEN: 03/25/2017 CHIEF COMPLAINT: Weakness. HISTORY OF PRESENT ILLNESS: This is a 76-year-old male with weakness, deconditioning, and parkinsonism features, has slept well overnight, complained of knee pain which has significantly improved today. Today, there are no new symptoms. REVIEW OF SYSTEMS: All other systems are negative. SOCIAL HISTORY: Lives at home alone. PHYSICAL EXAMINATION: VITAL SIGNS: Blood pressure is 138/72, temperature 97.8. EARS, NOSE, AND THROAT: Negative. CARDIOVASCULAR: Normal. RESPIRATORY SYSTEM: Clear. LABORATORY DATA: As noted above. With negative blood cultures and glucose of 102. IMPRESSION: 1. Parkinsonian features. 2. General deconditioning and weakness. 3. Frequent falls. 4. Bipolar disease. 5. History of cerebrovascular accident. 6. Type 2 diabetes, stable. PLAN: Continue current medications and therapy, occupational and physical. I would suggest a swing bed status, to continue with strengthening, and determine disposition afterwards. /[id number] ALEX/FELIPA
--- NOTE | 2017-03-25 12:54 | DISCH ---
DISCHARGE DATE: 03/25/2017 REASON FOR ADMISSION: 1. Rule out stroke. 2. Frequent falls. 3. Type 2 diabetes. DISCHARGE DIAGNOSES: 1. Frequent falls. 2. Physical deconditioning. 3. Parkinsonism features. 4. Type 2 diabetes. 5. Obesity and hypertension. PROCEDURES: None. CONSULTATIONS: Physical and occupational therapy. BRIEF HISTORY: This 76-year-old male was brought in because of frequent falls for the last 2 weeks, unable to stay alone at home, and needed some physical reconditioning. Initial head CT was negative for any stroke but showed cerebral atrophy. He did well in the hospital with physical and occupation. Occupational therapy worked with him for strengthening. He was discharged to swing bed for further rehabilitation on the 25 of March. DISCHARGE MEDICATIONS: Depakote 2000 mg at bedtime, diclofenac 4 g q.i.d. p.r.n., docusate one tab daily p.r.n., Flomax 0.4 mg at bedtime, Protonix 40 mg daily, amlodipine 2.5 mg daily, and risperidone 1 mg at bedtime. FOLLOWUP: He will be seen in the swing bed by the hospitalist as required and by policy. Please note that I spent more than 35 minutes in discharge of the patient. /[id number] ALEX/FELIPA
--- NOTE | 2017-04-19 17:00 | PCM.PN ---
- General Info Date of Service: 03/21/17 Functional Status: Reports: Tolerating Diet, Ambulating, Urinating. Denies: New Symptoms - Patient Data Vitals - Most Recent: Last Vital Signs Temp 98.2 F 03/25/17 08:00 Pulse 94 03/25/17 08:00 Resp 18 03/25/17 08:00 BP 136/74 03/25/17 08:17 Pulse Ox 97 03/25/17 12:00 Weight - Most Recent: 133.838 kg Lab Results Last 24 Hours: Laboratory Tests 03/20/17 03/20/17 03/20/17 Range/Units 08:20 08:20 08:20 WBC 7.6 (4.5-12.0) X10-3/uL RBC 4.21 L (4.30-5.75) x10(6)uL Hgb 12.8 (11.5-15.5) g/dL Hct 38.6 (30.0-51.3) % MCV 91.7 (80-96) fL MCH 30.4 (27.7-33.6) pg MCHC 33.2 (32.2-35.4) g/dL RDW 12.9 (11.5-15.5) % Plt Count 119 L (125-369) X10(3)uL MPV 6.5 L (7.4-10.4) fL Neut % (Auto) 80.6 (46-82) % Lymph % (Auto) 9.8 L (13-37) % [place] % (Auto) 9.1 (4-12) % Eos % (Auto) 0 L (1.0-5.0) % Baso % (Auto) 0 (0-2) % Neut # (Auto) 6.2 (1.6-8.3) # Lymph # (Auto) 0.7 (0.6-5.0) # [place] # (Auto) 0.7 (0.0-1.3) # Eos # (Auto) 0.0 (0.0-0.8) # Baso # (Auto) 0.0 (0.0-0.2) # PT 11.1 (8.7-11.1) INR 1.10 (0.89-1.13) Sodium 139 (135-145) mmol/L Potassium 4.6 (3.5-5.3) mmol/L Chloride 109 (100-110) mmol/L Carbon Dioxide 21 L (23-29) mmol/L BUN 28 H (8-23) mg/dL Creatinine 2.1 H* (0.6-1.3) mg/dL Est Cr Clr Drug Dosing TNP Estimated GFR (MDRD) 31 L (>60) BUN/Creatinine Ratio 13.3 (9-20) Glucose 151 H (80-116) mg/dL POC Glucose (80-116) mg/dL Hemoglobin A1c (4.0-6.0) % Lactic Acid (0.5-2.2) mmol/L Calcium 9.4 (8.6-10.2) mg/dL Total Bilirubin 0.7 (0.1-1.3) mg/dL Direct Bilirubin < 0.1 L (0.1-0.2) mg/dL AST 27 (5-27) IU/L ALT 14 (14-26) IU/L Alkaline Phosphatase 78 (56-112) IU/L Creatine Kinase 324 H* (60-160) IU/L Troponin I (0.02-0.06) NG/ML B-Natriuretic Peptide (0-100) pg/mL Total Protein 7.1 (6.0-8.0) g/dL Albumin 3.1 L (3.2-4.6) g/dL Globulin g/dL Albumin/Globulin Ratio Urine Color (YELLOW) Urine Appearance (CLEAR) Urine pH (5.0-6.5) Ur Specific [place] (1.010-1.025) Urine Protein (NEGATIVE) mg/dL Urine Glucose (UA) (NEGATIVE) mg/dL Urine Ketones (NEGATIVE) mg/dL Urine Occult Blood (NEGATIVE) Urine Nitrite (NEGATIVE) Urine Bilirubin (NEGATIVE) Urine Urobilinogen (NEGATIVE) mg/dL Ur Leukocyte Esterase (NEGATIVE) Urine RBC (0) Urine WBC (0) Ur Squamous Epith Cells (NS,R,O) Urine Bacteria (NS) Valproic Acid (50-100) ug/mL Valpro Last Dose Date Valpro Last Dose Time 03/20/17 03/20/17 03/20/17 Range/Units 08:20 08:20 08:20 WBC (4.5-12.0) X10-3/uL RBC (4.30-5.75) x10(6)uL Hgb (11.5-15.5) g/dL Hct (30.0-51.3) % MCV (80-96) fL MCH (27.7-33.6) pg MCHC (32.2-35.4) g/dL RDW (11.5-15.5) % Plt Count (125-369) X10(3)uL MPV (7.4-10.4) fL Neut % (Auto) (46-82) % Lymph % (Auto) (13-37) % [place] % (Auto) (4-12) % Eos % (Auto) (1.0-5.0) % Baso % (Auto) (0-2) % Neut # (Auto) (1.6-8.3) # Lymph # (Auto) (0.6-5.0) # [place] # (Auto) (0.0-1.3) # Eos # (Auto) (0.0-0.8) # Baso # (Auto) (0.0-0.2) # PT (8.7-11.1) INR (0.89-1.13) Sodium (135-145) mmol/L Potassium (3.5-5.3) mmol/L Chloride (100-110) mmol/L Carbon Dioxide (23-29) mmol/L BUN (8-23) mg/dL Creatinine (0.6-1.3) mg/dL Est Cr Clr Drug Dosing Estimated GFR (MDRD) (>60) BUN/Creatinine Ratio (9-20) Glucose (80-116) mg/dL POC Glucose (80-116) mg/dL Hemoglobin A1c (4.0-6.0) % Lactic Acid 2.8 H (0.5-2.2) mmol/L Calcium (8.6-10.2) mg/dL Total Bilirubin (0.1-1.3) mg/dL Direct Bilirubin (0.1-0.2) mg/dL AST (5-27) IU/L ALT (14-26) IU/L Alkaline Phosphatase (56-112) IU/L Creatine Kinase (60-160) IU/L Troponin I < 0.01 L (0.02-0.06) NG/ML B-Natriuretic Peptide 64 (0-100) pg/mL Total Protein (6.0-8.0) g/dL Albumin (3.2-4.6) g/dL Globulin g/dL Albumin/Globulin Ratio Urine Color (YELLOW) Urine Appearance (CLEAR) Urine pH (5.0-6.5) Ur Specific [place] (1.010-1.025) Urine Protein (NEGATIVE) mg/dL Urine Glucose (UA) (NEGATIVE) mg/dL Urine Ketones (NEGATIVE) mg/dL Urine Occult Blood (NEGATIVE) Urine Nitrite (NEGATIVE) Urine Bilirubin (NEGATIVE) Urine Urobilinogen (NEGATIVE) mg/dL Ur Leukocyte Esterase (NEGATIVE) Urine RBC (0) Urine WBC (0) Ur Squamous Epith Cells (NS,R,O) Urine Bacteria (NS) Valproic Acid (50-100) ug/mL Valpro Last Dose Date Valpro Last Dose Time 03/20/17 03/20/17 03/20/17 Range/Units 08:20 13:50 15:35 WBC (4.5-12.0) X10-3/uL RBC (4.30-5.75) x10(6)uL Hgb (11.5-15.5) g/dL Hct (30.0-51.3) % MCV (80-96) fL MCH (27.7-33.6) pg MCHC (32.2-35.4) g/dL RDW (11.5-15.5) % Plt Count (125-369) X10(3)uL MPV (7.4-10.4) fL Neut % (Auto) (46-82) % Lymph % (Auto) (13-37) % [place] % (Auto) (4-12) % Eos % (Auto) (1.0-5.0) % Baso % (Auto) (0-2) % Neut # (Auto) (1.6-8.3) # Lymph # (Auto) (0.6-5.0) # [place] # (Auto) (0.0-1.3) # Eos # (Auto) (0.0-0.8) # Baso # (Auto) (0.0-0.2) # PT (8.7-11.1) INR (0.89-1.13) Sodium (135-145) mmol/L Potassium (3.5-5.3) mmol/L Chloride (100-110) mmol/L Carbon Dioxide (23-29) mmol/L BUN (8-23) mg/dL Creatinine (0.6-1.3) mg/dL Est Cr Clr Drug Dosing Estimated GFR (MDRD) (>60) BUN/Creatinine Ratio (9-20) Glucose (80-116) mg/dL POC Glucose (80-116) mg/dL Hemoglobin A1c 5.6 (4.0-6.0) % Lactic Acid (0.5-2.2) mmol/L Calcium (8.6-10.2) mg/dL Total Bilirubin (0.1-1.3) mg/dL Direct Bilirubin (0.1-0.2) mg/dL AST (5-27) IU/L ALT (14-26) IU/L Alkaline Phosphatase (56-112) IU/L Creatine Kinase (60-160) IU/L Troponin I < 0.01 L (0.02-0.06) NG/ML B-Natriuretic Peptide (0-100) pg/mL Total Protein (6.0-8.0) g/dL Albumin (3.2-4.6) g/dL Globulin g/dL Albumin/Globulin Ratio Urine Color Yellow (YELLOW) Urine Appearance Clear (CLEAR) Urine pH 5.0 (5.0-6.5) Ur Specific [place] 1.010 (1.010-1.025) Urine Protein Negative (NEGATIVE) mg/dL Urine Glucose (UA) Normal (NEGATIVE) mg/dL Urine Ketones 15 H (NEGATIVE) mg/dL Urine Occult Blood Negative (NEGATIVE) Urine Nitrite Negative (NEGATIVE) Urine Bilirubin Negative (NEGATIVE) Urine Urobilinogen Normal (NEGATIVE) mg/dL Ur Leukocyte Esterase Negative (NEGATIVE) Urine RBC 0-5 (0) Urine WBC 0-5 (0) Ur Squamous Epith Cells Occasional (NS,R,O) Urine Bacteria Rare H (NS) Valproic Acid (50-100) ug/mL Valpro Last Dose Date Valpro Last Dose Time 03/20/17 03/20/17 03/20/17 Range/Units 17:03 19:15 21:24 WBC (4.5-12.0) X10-3/uL RBC (4.30-5.75) x10(6)uL Hgb (11.5-15.5) g/dL Hct (30.0-51.3) % MCV (80-96) fL MCH (27.7-33.6) pg MCHC (32.2-35.4) g/dL RDW (11.5-15.5) % Plt Count (125-369) X10(3)uL MPV (7.4-10.4) fL Neut % (Auto) (46-82) % Lymph % (Auto) (13-37) % [place] % (Auto) (4-12) % Eos % (Auto) (1.0-5.0) % Baso % (Auto) (0-2) % Neut # (Auto) (1.6-8.3) # Lymph # (Auto) (0.6-5.0) # [place] # (Auto) (0.0-1.3) # Eos # (Auto) (0.0-0.8) # Baso # (Auto) (0.0-0.2) # PT (8.7-11.1) INR (0.89-1.13) Sodium (135-145) mmol/L Potassium (3.5-5.3) mmol/L Chloride (100-110) mmol/L Carbon Dioxide (23-29) mmol/L BUN (8-23) mg/dL Creatinine (0.6-1.3) mg/dL Est Cr Clr Drug Dosing Estimated GFR (MDRD) (>60) BUN/Creatinine Ratio (9-20) Glucose (80-116) mg/dL POC Glucose 134 H 120 H (80-116) mg/dL Hemoglobin A1c (4.0-6.0) % Lactic Acid (0.5-2.2) mmol/L Calcium (8.6-10.2) mg/dL Total Bilirubin (0.1-1.3) mg/dL Direct Bilirubin (0.1-0.2) mg/dL AST (5-27) IU/L ALT (14-26) IU/L Alkaline Phosphatase (56-112) IU/L Creatine Kinase (60-160) IU/L Troponin I (0.02-0.06) NG/ML B-Natriuretic Peptide (0-100) pg/mL Total Protein (6.0-8.0) g/dL Albumin (3.2-4.6) g/dL Globulin g/dL Albumin/Globulin Ratio Urine Color (YELLOW) Urine Appearance (CLEAR) Urine pH (5.0-6.5) Ur Specific [place] (1.010-1.025) Urine Protein (NEGATIVE) mg/dL Urine Glucose (UA) (NEGATIVE) mg/dL Urine Ketones (NEGATIVE) mg/dL Urine Occult Blood (NEGATIVE) Urine Nitrite (NEGATIVE) Urine Bilirubin (NEGATIVE) Urine Urobilinogen (NEGATIVE) mg/dL Ur Leukocyte Esterase (NEGATIVE) Urine RBC (0) Urine WBC (0) Ur Squamous Epith Cells (NS,R,O) Urine Bacteria (NS) Valproic Acid 76 (50-100) ug/mL Valpro Last Dose Date 03/19/17 Valpro Last Dose Time 209903/21/17 03/21/17 03/21/17 Range/Units 06:30 06:30 11:41 WBC 7.7 (4.5-12.0) X10-3/uL RBC 3.73 L (4.30-5.75) x10(6)uL Hgb 11.4 L (11.5-15.5) g/dL Hct 34.3 (30.0-51.3) % MCV 92.1 (80-96) fL MCH 30.5 (27.7-33.6) pg MCHC 33.1 (32.2-35.4) g/dL RDW 13.0 (11.5-15.5) % Plt Count 110 L (125-369) X10(3)uL MPV 7.0 L (7.4-10.4) fL Neut % (Auto) 59.7 (46-82) % Lymph % (Auto) 27.9 (13-37) % [place] % (Auto) 10.0 (4-12) % Eos % (Auto) 2 (1.0-5.0) % Baso % (Auto) 0 (0-2) % Neut # (Auto) 4.6 (1.6-8.3) # Lymph # (Auto) 2.1 (0.6-5.0) # [place] # (Auto) 0.8 (0.0-1.3) # Eos # (Auto) 0.2 (0.0-0.8) # Baso # (Auto) 0.0 (0.0-0.2) # PT (8.7-11.1) INR (0.89-1.13) Sodium 140 (135-145) mmol/L Potassium 4.0 (3.5-5.3) mmol/L Chloride 110 (100-110) mmol/L Carbon Dioxide 25 (23-29) mmol/L BUN 27 H (8-23) mg/dL Creatinine 1.9 H (0.6-1.3) mg/dL Est Cr Clr Drug Dosing 36.87 Estimated GFR (MDRD) 35 L (>60) BUN/Creatinine Ratio 14.2 (9-20) Glucose 95 (80-116) mg/dL POC Glucose 119 H (80-116) mg/dL Hemoglobin A1c (4.0-6.0) % Lactic Acid (0.5-2.2) mmol/L Calcium 9.1 (8.6-10.2) mg/dL Total Bilirubin 0.2 (0.1-1.3) mg/dL Direct Bilirubin (0.1-0.2) mg/dL AST 42 H D (5-27) IU/L ALT 16 D (14-26) IU/L Alkaline Phosphatase 67 (56-112) IU/L Creatine Kinase 911 H* (60-160) IU/L Troponin I (0.02-0.06) NG/ML B-Natriuretic Peptide (0-100) pg/mL Total Protein 5.6 L (6.0-8.0) g/dL Albumin 2.5 L (3.2-4.6) g/dL Globulin 3.1 g/dL Albumin/Globulin Ratio 0.8 Urine Color (YELLOW) Urine Appearance (CLEAR) Urine pH (5.0-6.5) Ur Specific [place] (1.010-1.025) Urine Protein (NEGATIVE) mg/dL Urine Glucose (UA) (NEGATIVE) mg/dL Urine Ketones (NEGATIVE) mg/dL Urine Occult Blood (NEGATIVE) Urine Nitrite (NEGATIVE) Urine Bilirubin (NEGATIVE) Urine Urobilinogen (NEGATIVE) mg/dL Ur Leukocyte Esterase (NEGATIVE) Urine RBC (0) Urine WBC (0) Ur Squamous Epith Cells (NS,R,O) Urine Bacteria (NS) Valproic Acid (50-100) ug/mL Valpro Last Dose Date Valpro Last Dose Time Med Orders - Current: Current Medications Discontinued Medications Hydrocodone Bitart/Acetaminophen ([place] 325-5 Mg) 1 tab PO Q4H PRN PRN Reason: Pain (moderate 4-6) Last Admin: 03/24/17 10:24 Dose: 1 tab Amlodipine Besylate (Norvasc) 2.5 mg PO DAILY [facility] Last Admin: 03/25/17 08:17 Dose: 2.5 mg Aspirin (Aspirin) 81 mg PO DAILY [facility] Last Admin: 03/25/17 08:17 Dose: 81 mg Diclofenac Sodium (Voltaren 1% Gel) 4 gm TOP QID PRN PRN Reason: Pain Last Admin: 03/25/17 11:12 Dose: 4 applic Divalproex Sodium (Depakote Er) 2,000 mg PO BEDTIME [facility] Last Admin: 03/24/17 20:34 Dose: 2,000 mg Docusate Sodium (Colace) 100 mg PO BID [facility] Last Admin: 03/25/17 08:17 Dose: 100 mg Enoxaparin Sodium (Lovenox) 30 mg SUBCUT Q24H [facility] Last Admin: 03/24/17 16:04 Dose: 30 mg Sodium Chloride (Normal Saline) 500 mls @ 999 mls/hr IV .BOLUS ONE Stop: 03/20/17 08:49 Last Admin: 03/20/17 10:56 Dose: 999 mls/hr Lactated Ringer's (Ringers, Lactated) 1,000 mls @ 150 mls/hr IV ASDIRECTED [facility] Last Admin: 03/22/17 04:30 Dose: 150 mls/hr Levofloxacin/Dextrose 500 mg/ (Premix) 100 mls @ 100 mls/hr IV ONETIME ONE Stop: 03/20/17 12:47 Last Admin: 03/20/17 14:11 Dose: 100 mls/hr Levofloxacin/Dextrose 250 mg/ (Premix) 50 mls @ 50 mls/hr IV ONETIME ONE Stop: 03/20/17 16:13 Last Admin: 03/20/17 15:29 Dose: 50 mls/hr Levofloxacin/Dextrose 750 mg/ (Premix) 150 mls @ 100 mls/hr IV Q48H [facility] Potassium Chloride/Dextrose/Sod Cl (D5 1/2 Ns W/ 10 Meq/L Kcl) 1,000 mls @ 150 mls/hr IV ASDIRECTED [facility] Insulin Aspart (Novolog) 0 unit SUBCUT TIDMEALS [facility] PRN Reason: Protocol Last Admin: 03/25/17 11:28 Dose: Not Given Insulin Detemir (Levemir) 20 unit SUBCUT DAILY [facility] Insulin Detemir (Levemir) 20 unit SUBCUT DAILY [facility] Last Admin: 03/25/17 08:17 Dose: 20 units Labetalol HCl (Normodyne) 10 mg IVPUSH Q6H PRN; Protocol PRN Reason: Hypertension Ondansetron HCl (Zofran) 4 mg IV Q4H PRN PRN Reason: Nausea/Vomiting Pantoprazole Sodium (Protonix Iv) 40 mg IVPUSH Q24H [facility] Last Admin: 03/20/17 16:37 Dose: Not Given Pantoprazole Sodium (Protonix Iv) 40 mg IVPUSH Q24H [facility] Last Admin: 03/23/17 17:27 Dose: Not Given Pantoprazole Sodium (Protonix) 40 mg PO DAILY@0600 [facility] Last Admin: 03/25/17 06:18 Dose: 40 mg Risperidone (Risperidal) 1 mg PO BEDTIME [facility] Last Admin: 03/24/17 20:33 Dose: 1 mg Senna/Docusate Sodium (Senna Plus) 1 tab PO DAILY PRN PRN Reason: Constipation Tamsulosin HCl (Flomax) 0.4 mg PO BEDTIME [facility] Last Admin: 03/24/17 20:33 Dose: 0.4 mg - Exam General: Alert, Cooperative, No Acute Distress. No: Oriented HEENT: Pupils Equal, Other (gingivitis improved.) Neck: Supple. No: Lymphadenopathy Lungs: Clear to Auscultation, Normal Respiratory Effort Cardiovascular: Regular Rate, Regular Rhythm GI/Abdominal Exam: Normal Bowel Sounds, Non-Tender Back Exam: No: Vertebral Tenderness Extremities: Normal Capillary Refill. No: Pedal Edema Neurological: No New Focal Deficit, Strength Equal Bilateral Psy/Mental Status: Normal Affect, Normal Mood - Problem List & Annotations (1) Suspected cerebrovascular accident (CVA) SNOMED Code(s): 80363199 Code(s): I63.9 - CEREBRAL INFARCTION, UNSPECIFIED Status: Acute Priority : High (2) Frequent falls SNOMED Code(s): 031511943 Code(s): R29.6 - REPEATED FALLS Status: Acute (3) Mental health assessment declined SNOMED Code(s): 493866152 Code(s): HPA1856 - Status: Acute (4) Acute renal insufficiency SNOMED Code(s): 950916145 Code(s): N28.9 - DISORDER OF KIDNEY AND URETER, UNSPECIFIED Status: Acute (5) Gingivitis, acute SNOMED Code(s): 28267195 Code(s): K05.00 - ACUTE GINGIVITIS, PLAQUE INDUCED Status: Acute (6) Other dental procedure status SNOMED Code(s): 923169490 Code(s): Z98.818 - OTHER DENTAL PROCEDURE STATUS Status: Acute (7) Complaint of debility and malaise SNOMED Code(s): 978592490 Code(s): R53.81 - OTHER MALAISE Status: Acute (8) Diabetes mellitus, insulin dependent (IDDM), controlled SNOMED Code(s): 41125072 Code(s): E11.9 - TYPE 2 DIABETES MELLITUS WITHOUT COMPLICATIONS; Z79.4 - CITRIX ADMINISTRATOR (CURRENT) USE OF INSULIN Status: Acute (9) Palliative care status SNOMED Code(s): 312136760 Code(s): Z51.5 - ENCOUNTER FOR PALLIATIVE CARE Status: Acute (10) CVD (cerebrovascular disease) SNOMED Code(s): 96848436 Code(s): I67.9 - CEREBROVASCULAR DISEASE, UNSPECIFIED Status: Acute (11) Cerebral atrophy SNOMED Code(s): 295351166 Code(s): G31.9 - DEGENERATIVE DISEASE OF NERVOUS SYSTEM, UNSPECIFIED Status : Acute (12) DNR (do not resuscitate) Status: Acute (13) DNI (do not intubate) SNOMED Code(s): 606368252 Code(s): Z78.9 - OTHER SPECIFIED HEALTH STATUS Status: Acute (14) HTN (hypertension) SNOMED Code(s): 87308584 Code(s): I10 - ESSENTIAL (PRIMARY) HYPERTENSION Status: Acute (15) Hx of seizure disorder SNOMED Code(s): 283454444 Code(s): Z86.69 - PERSONAL HISTORY OF DIS OF THE NERVOUS SYS AND SENSE ORGANS Status: Acute (16) History of CVA (cerebrovascular accident) SNOMED Code(s): 333639106 Code(s): Z86.73 - PRSNL HX OF TIA (TIA), AND CEREB INFRC W/O RESID DEFICITS Status: Chronic (17) Lives in assisted living facility SNOMED Code(s): 375871199 Code(s): Z59.3 - PROBLEMS RELATED TO LIVING IN RESIDENTIAL INSTITUTION Status: Chronic (18) Parkinsons SNOMED Code(s): 45906105 Code(s): G20 - PARKINSON'S DISEASE Status: Acute (19) Physical deconditioning SNOMED Code(s): 11897686678749 Code(s): R53.81 - OTHER MALAISE Status: Acute - Problem List Review Problem List Initiated/Reviewed/Updated: Yes - Plan Plan:: correction from yesterday, i did NOT stop antibiotics. bc pending. continue hydrate. dvt/gi proph. pt/ot. forensic social worker for d/c planning. stoke and seizure percautions. CK elevated, will make sure clearing kidneys. control bp and fluid status. at risk for falls. no events on tele d/c. discussed with son at bedside and plan of care as related to above, including indication, projected course and code status reviewed. he is DNR/DNI. they are comfortable with plan. anticipate stay acute another day then likely over to swing bed for continued PT/OT.
== END 2017-03-25 12:59 | disposition swing bed (61) | DRG 92 ==
LOC: FB.ED 08:00 → FB.MS 10:30 → UNDOADMIN 11:24 → UNDODISIN 03-25 12:59
PROVIDERS: ADMIT Family Medicine; ATTEND Family Medicine
DX: R29.6 Repeated falls (principal); N17.9 Acute kidney failure, unspecified; I10 Essential (primary) hypertension; G31.9 Degenerative disease of nervous system, unspecified; E11.9 Type 2 diabetes mellitus without complications; Z79.4 Long term (current) use of insulin; Z66 Do not resuscitate; Z51.5 Encounter for palliative care; F31.9 Bipolar disorder, unspecified; K05.00 Acute gingivitis, plaque induced; R53.81 Other malaise; R53.1 Weakness; E86.0 Dehydration; R61 Generalized hyperhidrosis; R41.82 Altered mental status, unspecified; G20 Parkinson's disease; Z86.73 Personal history of transient ischemic attack (TIA), and cerebral infarction without residual deficits; Z86.69 Personal history of other diseases of the nervous system and sense organs; Z98.818 Other dental procedure status; Z79.82 Long term (current) use of aspirin; M25.561 Pain in right knee
CPT/HCPCS: 36415; 70450; 71020; 80048; 80076; 82550; 83036; 83605; 83880; 84484; 85025; 85610; 99285; J7040; 80053; 80164; 81001; 82962; 87040; 93005; 94150; 96360; 97110-GP; 97116-GP; 97161-GP; 97165-GO; 97530-GO-KX; 97535-GO; A9270-GY; C9113; J1650; J1956; J7120

== ENCOUNTER 2017-03-25 13:00 | Inpatient (IN) | payer MEDICARE, MEDICAID ==
[2017-03-25] MEDS: Vitamin E (dl-alpha-tocopherol acetate) 400 Unit Cap PO SCH (16:29)
[2017-03-25] MEDS: Docusate Sodium 100 MG Cap PO SCH (20:11)
[2017-03-25] MEDS: Tamsulosin 0.4 MG Cap.ER PO SCH (20:12)
[2017-03-25] MEDS: Divalproex Sodium 500 MG Tab.ER PO SCH (20:12)
[2017-03-25] MEDS: risperiDONE 1 MG Tab PO SCH (20:13)
[2017-03-25] MEDS: Diclofenac Sodium 1% Gel 100 GM Tube TOP PRN (21:38)
[2017-03-26] MEDS: Diclofenac Sodium 1% Gel 100 GM Tube TOP PRN (04:20)
[2017-03-26] MEDS: Pantoprazole 40 MG Tab.CR PO SCH (05:36)
[2017-03-26] MEDS: Aspirin 81 MG Tab.Chew PO SCH (09:03)
[2017-03-26] MEDS: Vitamin E (dl-alpha-tocopherol acetate) 400 Unit Cap PO SCH (09:03)
[2017-03-26] MEDS: Docusate Sodium 100 MG Cap PO SCH ×2 (09:03→20:28)
[2017-03-26] MEDS: Insulin Detemir 100 Units/ML 3 ML Pen SUBCUT SCH (09:04)
[2017-03-26] MEDS: amLODIPine 2.5 MG Tab PO SCH (09:04)
[2017-03-26] MEDS: Divalproex Sodium 500 MG Tab.ER PO SCH (20:28)
[2017-03-26] MEDS: Tamsulosin 0.4 MG Cap.ER PO SCH (20:29)
[2017-03-26] MEDS: risperiDONE 1 MG Tab PO SCH (20:29)
[2017-03-27] MEDS: Diclofenac Sodium 1% Gel 100 GM Tube TOP PRN (03:53)
[2017-03-27] MEDS: Pantoprazole 40 MG Tab.CR PO SCH (06:50)
[2017-03-27] MEDS: amLODIPine 2.5 MG Tab PO SCH (08:14)
[2017-03-27] MEDS: Aspirin 81 MG Tab.Chew PO SCH (08:15)
[2017-03-27] MEDS: Docusate Sodium 100 MG Cap PO SCH ×2 (08:16→20:36)
[2017-03-27] MEDS: Vitamin E (dl-alpha-tocopherol acetate) 400 Unit Cap PO SCH (08:17)
[2017-03-27] MEDS: Insulin Detemir 100 Units/ML 3 ML Pen SUBCUT SCH (08:22)
[2017-03-27] MEDS: risperiDONE 1 MG Tab PO SCH (20:36)
[2017-03-27] MEDS: Tamsulosin 0.4 MG Cap.ER PO SCH (20:36)
[2017-03-27] MEDS: Divalproex Sodium 500 MG Tab.ER PO SCH (20:42)
[2017-03-28] MEDS: Pantoprazole 40 MG Tab.CR PO SCH (06:05)
[2017-03-28] MEDS: Aspirin 81 MG Tab.Chew PO SCH (08:36)
[2017-03-28] MEDS: Docusate Sodium 100 MG Cap PO SCH ×2 (08:36→20:38)
[2017-03-28] MEDS: Vitamin E (dl-alpha-tocopherol acetate) 400 Unit Cap PO SCH (08:37)
[2017-03-28] MEDS: amLODIPine 2.5 MG Tab PO SCH (08:37)
[2017-03-28] MEDS: Insulin Detemir 100 Units/ML 3 ML Pen SUBCUT SCH (09:11)
[2017-03-28] MEDS: Divalproex Sodium 500 MG Tab.ER PO SCH (20:38)
[2017-03-28] MEDS: risperiDONE 1 MG Tab PO SCH (20:40)
[2017-03-28] MEDS: Tamsulosin 0.4 MG Cap.ER PO SCH (20:40)
[2017-03-29] MEDS: Pantoprazole 40 MG Tab.CR PO SCH (06:22)
[2017-03-29] MEDS: Docusate Sodium 100 MG Cap PO SCH ×2 (08:46→20:35)
[2017-03-29] MEDS: Aspirin 81 MG Tab.Chew PO SCH (08:46)
[2017-03-29] MEDS: amLODIPine 2.5 MG Tab PO SCH (08:46)
[2017-03-29] MEDS: Vitamin E (dl-alpha-tocopherol acetate) 400 Unit Cap PO SCH (08:47)
[2017-03-29] MEDS: Insulin Detemir 100 Units/ML 3 ML Pen SUBCUT SCH (09:01)
[2017-03-29] MEDS: Polyethylene Glycol 3350 Powder 17 GM Packet PO SCH (19:32)
[2017-03-29] MEDS: Divalproex Sodium 500 MG Tab.ER PO SCH (20:35)
[2017-03-29] MEDS: Tamsulosin 0.4 MG Cap.ER PO SCH (20:39)
[2017-03-29] MEDS: risperiDONE 1 MG Tab PO SCH (20:39)
[2017-03-30] MEDS: Pantoprazole 40 MG Tab.CR PO SCH (06:21)
[2017-03-30] MEDS: Aspirin 81 MG Tab.Chew PO SCH (08:29)
[2017-03-30] MEDS: Docusate Sodium 100 MG Cap PO SCH ×2 (08:29→20:18)
[2017-03-30] MEDS: Vitamin E (dl-alpha-tocopherol acetate) 400 Unit Cap PO SCH (08:29)
[2017-03-30] MEDS: Insulin Detemir 100 Units/ML 3 ML Pen SUBCUT SCH (08:31)
[2017-03-30] MEDS: amLODIPine 2.5 MG Tab PO SCH (08:32)
[2017-03-30] MEDS: Polyethylene Glycol 3350 Powder 17 GM Packet PO SCH (09:44)
[2017-03-30] MEDS: Divalproex Sodium 500 MG Tab.ER PO SCH (20:18)
[2017-03-30] MEDS: Tamsulosin 0.4 MG Cap.ER PO SCH (20:19)
[2017-03-30] MEDS: risperiDONE 1 MG Tab PO SCH (20:19)
[2017-03-31] MEDS: Pantoprazole 40 MG Tab.CR PO SCH (05:05)
[2017-03-31] MEDS: Docusate Sodium 100 MG Cap PO SCH ×2 (09:03→20:17)
[2017-03-31] MEDS: Aspirin 81 MG Tab.Chew PO SCH (09:03)
[2017-03-31] MEDS: Polyethylene Glycol 3350 Powder 17 GM Packet PO SCH (09:04)
[2017-03-31] MEDS: amLODIPine 2.5 MG Tab PO SCH (09:05)
[2017-03-31] MEDS: Vitamin E (dl-alpha-tocopherol acetate) 400 Unit Cap PO SCH (09:07)
[2017-03-31] MEDS: Insulin Detemir 100 Units/ML 3 ML Pen SUBCUT SCH (10:16)
[2017-03-31] MEDS: Diclofenac Sodium 1% Gel 100 GM Tube TOP PRN (20:14)
[2017-03-31] MEDS: risperiDONE 1 MG Tab PO SCH (20:18)
[2017-03-31] MEDS: Tamsulosin 0.4 MG Cap.ER PO SCH (20:18)
[2017-03-31] MEDS: Divalproex Sodium 500 MG Tab.ER PO SCH (20:19)
[2017-04-01] MEDS: Pantoprazole 40 MG Tab.CR PO SCH (05:14)
--- NOTE | 2017-04-01 08:49 | PCM.PN ---
- General Info Date of Service: 04/01/17 Admission Dx/Problem (Free Text): This is a 76-year-old male patient here for frequent falls, deconditioning, Parkinson disease. He is doing well on PT/OT and getting stronger. He'll be discharged to assisted living today with home health. - Patient Data Vitals - most recent: Last Vital Signs Temp 98.0 F 03/31/17 08:44 Pulse 74 03/31/17 08:44 Resp 20 03/31/17 08:44 BP 130/63 03/31/17 09:05 Pulse Ox 96 03/31/17 12:54 Weight - most recent: 295 lb 11.2 oz I&O - last 24 hours: Intake & Output 03/31/17 04/01/17 04/01/17 22:59 06:59 14:59 Intake Total 437 Balance 437 Lab Results last 24 hrs: Laboratory Results - last 24 hr 03/31/17 04/01/17 Range/Units 10:15 05:17 POC Glucose 140 H 71 L (80-116) mg/dL Med Orders - Current: Current Medications Amlodipine Besylate (Norvasc) 2.5 mg PO DAILY [facility] Last Admin: 03/31/17 09:05 Dose: 2.5 mg Aspirin (Aspirin) 81 mg PO DAILY [facility] Last Admin: 03/31/17 09:03 Dose: 81 mg Diclofenac Sodium (Voltaren 1% Gel) 4 gm TOP QID PRN PRN Reason: Breakthrough Pain Last Admin: 03/31/17 20:14 Dose: 4 gm Divalproex Sodium (Depakote Er) 2,000 mg PO BEDTIME [facility] Last Admin: 03/31/17 20:19 Dose: 2,000 mg Docusate Sodium (Colace) 100 mg PO BID [facility] Last Admin: 03/31/17 20:17 Dose: 100 mg Insulin Detemir (Levemir) 20 unit SUBCUT DAILY [facility] Last Admin: 03/31/17 10:16 Dose: 20 units Pantoprazole Sodium (Protonix) 40 mg PO 0600 [facility] Last Admin: 04/01/17 05:14 Dose: 40 mg Polyethylene Glycol (Miralax) 17 gm PO DAILY [facility] Last Admin: 03/31/17 09:04 Dose: 17 gm Risperidone (Risperidal) 1 mg PO BEDTIME [facility] Last Admin: 03/31/17 20:18 Dose: 1 mg Sitagliptin Phosphate (Januvia) 50 mg PO DAILY [facility] Last Admin: 03/31/17 09:04 Dose: 50 mg Tamsulosin HCl (Flomax) 0.4 mg PO BEDTIME [facility] Last Admin: 03/31/17 20:18 Dose: 0.4 mg Vitamin E (Vitamin E) 400 units PO DAILY [facility] Last Admin: 03/31/17 09:07 Dose: 400 units - Exam General: alert, oriented, cooperative Lungs: Clear to auscultation, Normal respiratory effort Cardiovascular: Regular Rate, Regular Rhythm, No Murmurs Extremities: no edema - Problem List & Annotations (1) Parkinsons SNOMED Code(s): 20417435 Code(s): G20 - PARKINSON'S DISEASE Status: Acute Current Visit: Yes (2) Physical deconditioning SNOMED Code(s): 19548035911965 Code(s): R53.81 - OTHER MALAISE Status: Acute Current Visit: Yes (3) Diabetes mellitus, insulin dependent (IDDM), controlled SNOMED Code(s): 21280109 Code(s): E11.9 - TYPE 2 DIABETES MELLITUS WITHOUT COMPLICATIONS; Z79.4 - OUTFITTER CABIN (CURRENT) USE OF INSULIN Status: Acute Current Visit: No (4) Frequent falls SNOMED Code(s): 584864633 Code(s): R29.6 - REPEATED FALLS Status: Acute Current Visit: No (5) HTN (hypertension) SNOMED Code(s): 18298651 Code(s): I10 - ESSENTIAL (PRIMARY) HYPERTENSION Status: Acute Current Visit: No Qualifiers: - Problem List Review Problem List Initiated/Reviewed/Updated: Yes - My Orders Last 24 Hours: My Active Orders 03/31/17 09:26 Accu Check [Blood Glucose Check, Bedside] [RC] 07 - Plan Plan:: Discharge to [facility] with home health.
--- NOTE | 2017-04-01 08:53 | PCM.DCSUM1 ---
Discharge Summary - Hospital Course Free Text/Narrative:: Hospital course-patient PT/OT and had a great improvement of his function. At the end he was able to dress himself, go to the bathroom and he was susceptible to using the walker. He'll be sent home on home health, PT/OT to [facility] where he was living before. Brief History: This is a 76-year-old male patient was admitted to acute care to rule out stroke because of frequent falls. Stroke was ruled out and is eventually transferred to swing bed. Patient did well in bed. 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 OT Reason for Consult: Strengthening This query below is only for informational purposes and is not editable. PT Evaluation and Treatment [CONS] Routine Please Evaluate and Treat. PT Reason for Consult: Ambulation This query below is only for informational purposes and is not editable. - Patient Instructions Diet: Diabetic Diet Activity: As Tolerated Driving: Do Not Drive Showering/Bathing: May Shower Other/Special Instructions: 1. Recheck with Dr. Yuri Mcdonald 7-10 days. 2. Home health, PT, OT for strengthening, ambulation, home assessment, med management, disease management. - Discharge Plan Home Medications: Home Meds Ascorbic Acid [Vitamin C] 500 mg PO DAILY 03/20/17 [History] Aspirin 81 mg PO DAILY 03/20/17 [History] Cholecalciferol (Vitamin D3) [Vitamin D3] 1,000 units PO DAILY 03/20/17 [History ] Divalproex Sodium [Depakote ER] 2,000 mg PO BEDTIME 03/20/17 [History] Docusate Sodium [Colace] 100 mg PO BID 03/20/17 [History] Insulin Glargine,Hum.Rec.Anlog [Toujeo Solostar] 27 units SUBCUT DAILY 03/20/17 [History] Polyethylene Glycol 3350 [Miralax] 17 gram PO BID 03/20/17 [History] Sennosides/Docusate Sodium [Senna Laxative Tablet] 1 tab PO DAILY PRN 03/20/17 [ History] SitaGLIPtin [Januvia] 50 mg PO DAILY 03/20/17 [History] Tamsulosin [Flomax] 0.4 mg PO BEDTIME 03/20/17 [History] Vitamin E 400 units PO DAILY 03/20/17 [History] amLODIPine Besylate [Norvasc] 2.5 mg PO DAILY 03/20/17 [History] risperiDONE [Risperdal] 1 mg PO BEDTIME 03/20/17 [History] - Discharge Summary/Plan Comment DC Time >30 min.: No - Patient Data Vitals - Most Recent: Last Vital Signs Temp 98.0 F 03/31/17 08:44 Pulse 74 03/31/17 08:44 Resp 20 03/31/17 08:44 BP 130/63 03/31/17 09:05 Pulse Ox 96 03/31/17 12:54 Weight - Most Recent: 295 lb 11.2 oz I&O - Last 24 hours: Intake & Output 03/31/17 04/01/17 04/01/17 22:59 06:59 14:59 Intake Total 437 Balance 437 Lab Results - Last 24 hrs: Laboratory Results - last 24 hr 03/31/17 04/01/17 Range/Units 10:15 05:17 POC Glucose 140 H 71 L (80-116) mg/dL Med Orders - Current: Current Medications Amlodipine Besylate (Norvasc) 2.5 mg PO DAILY [facility] Last Admin: 03/31/17 09:05 Dose: 2.5 mg Aspirin (Aspirin) 81 mg PO DAILY [facility] Last Admin: 03/31/17 09:03 Dose: 81 mg Diclofenac Sodium (Voltaren 1% Gel) 4 gm TOP QID PRN PRN Reason: Breakthrough Pain Last Admin: 03/31/17 20:14 Dose: 4 gm Divalproex Sodium (Depakote Er) 2,000 mg PO BEDTIME [facility] Last Admin: 03/31/17 20:19 Dose: 2,000 mg Docusate Sodium (Colace) 100 mg PO BID [facility] Last Admin: 03/31/17 20:17 Dose: 100 mg Insulin Detemir (Levemir) 20 unit SUBCUT DAILY [facility] Last Admin: 03/31/17 10:16 Dose: 20 units Pantoprazole Sodium (Protonix) 40 mg PO 0600 [facility] Last Admin: 04/01/17 05:14 Dose: 40 mg Polyethylene Glycol (Miralax) 17 gm PO DAILY [facility] Last Admin: 03/31/17 09:04 Dose: 17 gm Risperidone (Risperidal) 1 mg PO BEDTIME [facility] Last Admin: 03/31/17 20:18 Dose: 1 mg Sitagliptin Phosphate (Januvia) 50 mg PO DAILY [facility] Last Admin: 03/31/17 09:04 Dose: 50 mg Tamsulosin HCl (Flomax) 0.4 mg PO BEDTIME [facility] Last Admin: 03/31/17 20:18 Dose: 0.4 mg Vitamin E (Vitamin E) 400 units PO DAILY [facility] Last Admin: 03/31/17 09:07 Dose: 400 units *Q Meaningful Use (DIS) - VTE *Q VTE Criteria *Q: - Stroke *Q Stroke Criteria *Q: - AMI *Q AMI Criteria *Q:
[2017-04-01] MEDS: Aspirin 81 MG Tab.Chew PO SCH (08:59)
[2017-04-01] MEDS: Insulin Detemir 100 Units/ML 3 ML Pen SUBCUT SCH (08:59)
[2017-04-01] MEDS: Vitamin E (dl-alpha-tocopherol acetate) 400 Unit Cap PO SCH (08:59)
[2017-04-01] MEDS: amLODIPine 2.5 MG Tab PO SCH (08:59)
[2017-04-01] MEDS: Docusate Sodium 100 MG Cap PO SCH (08:59)
[2017-04-01] MEDS: Polyethylene Glycol 3350 Powder 17 GM Packet PO SCH (08:59)
[2017-04-01 09:02] VITALS: BP 110/61
== END 2017-04-01 14:10 | disposition home or self-care (01) | DRG 948 ==
LOC: FB.MS 13:00
PROVIDERS: ADMIT Family Medicine; ATTEND Family Medicine
DX: R53.81 Other malaise (principal); R29.6 Repeated falls; G20 Parkinson's disease; E11.9 Type 2 diabetes mellitus without complications; Z79.4 Long term (current) use of insulin; I10 Essential (primary) hypertension; Z66 Do not resuscitate; Z79.82 Long term (current) use of aspirin
CPT/HCPCS: 82962; 97110-GO; 97110-GP; 97116-GP; 97530-GO; 97530-GO-KX; 97530-GP; 97535-GO; A9270-GY